=== PATIENT | female | born 1955 | race African-American/Black ===

== ENCOUNTER 2016-06-06 22:23 | Emergency (ER) | payer BC, OTHER ==
[2016-06-06] MEDS ORDERED: NORMAL SALINE 1000 ML 1,000 ML IV ONE (22:35)
[2016-06-06] MEDS ORDERED: OXYCODONE-ACETAMINOPHEN 5-325 MG TABLET PO ONE (22:36)
--- NOTE | 2016-06-06 22:41 | ER Document Report ---
ED Medical Screen (RME) - General Stated Complaint: CRAMPING Notes: Patient is a 60 year old female that comes to the ED for chief complaint of cramping pain in her hands and legs, she states symptoms have been present intermittently for years, states for the past 7 days they have been much worse, states today it became unbearable. Cramping worst in the left hand. No fevers. She states she has been eating/drinking today. TRAVEL OUTSIDE OF THE [place] IN LAST 30 DAYS: No - Related Data Allergies/Adverse Reactions: No Known Allergies Allergy (Verified 06/06/16 22:35) Past Medical History - Past Medical History Cardiac Medical History: Reports: Hx Hypertension Endocrine Medical History: Reports: Hx Diabetes Mellitus Type 2 Past Surgical History: Reports: Hx Hysterectomy, Hx Orthopedic Surgery - shoulders Physical Exam - General General appearance: Alert, Anxious In distress: Mild - patient with obvious cramps in her hands, worse on the left , appears to be in pain Course - Re-evaluation Re-evalutation: Patient reports she has been evaluated and treated by Neurology for this, states she has also been treated acutely for this with fluids. She states neurology told her it was related to her spine. She denies any numbness or weakness. Patient appears to be in pain, is requesting pain medication.
[2016-06-06 23:04] LABS: ABSOLUTE BASOPHILS # (AUTO) 0.1 10^3/uL (0.0-0.2); ABSOLUTE EOSINOPHILS # (AUTO) 0.1 10^3/uL (0.0-0.6); ABSOLUTE LYMPHOCYTES (AUTO) 2.4 10^3/uL (0.5-4.7); ABSOLUTE MONOCYTES (AUTO) 0.7 10^3/uL (0.1-1.4); BASOPHILS % (AUTO) 0.9 % (0-2); EOSINOPHILS % (AUTO) 0.7 % (0-6); HEMATOCRIT 41.3 % (36.0-47.0); HEMOGLOBIN 13.9 g/dL (12.0-15.5); HGB HCT DIFFERENCE 0.4; LYMPHOCYTES % (AUTO) 29.4 % (13-45); MEAN CORPUSCULAR HEMOGLOBIN 29.5 pg (27.0-33.4); MEAN CORPUSCULAR HGB CONC 33.7 g/dL (32.0-36.0); MEAN CORPUSCULAR VOLUME 87 fl (80-97); MONOCYTES % (AUTO) 8.2 % (3-13); RED BLOOD COUNT 4.73 10^6/uL (3.72-5.28); RED CELL DISTRIBUTION WIDTH 14.1 % (11.5-14.0); SEGMENTED NEUTROPHILS % (AUTO) 60.8 % (42-78); WHITE BLOOD COUNT 8.2 10^3/uL (4.0-10.5)
[2016-06-06 23:12] LABS: APPEARANCE,URINE CLEAR; BILIRUBIN,URINE NEGATIVE (NEGATIVE); GLUCOSE, URINE 150 mg/dL (NEGATIVE); KETONES,URINE NEGATIVE (NEGATIVE); LEUKOCYTE ESTERASE,URINE NEGATIVE (NEGATIVE); NITRITE,URINE NEGATIVE (NEGATIVE); PROTEIN,URINE NEGATIVE (NEGATIVE); URINE SPECIFIC GRAVITY 1.017; UROBILINOGEN,URINE NEGATIVE mg/dL (<2.0)
[2016-06-06 23:28] LABS: ALANINE AMINOTRANSFERASE 22 U/L (9-52); ALKALINE PHOSPHATASE 67 U/L (38-126); ANION GAP 13 (5-19); ASPARTATE AMINO TRANSFERASE 22 U/L (14-36); BILIRUBIN,TOTAL 0.3 mg/dL (0.2-1.3); BLOOD UREA NITROGEN 20 mg/dL (7-20); CALCIUM 10.1 mg/dL (8.4-10.2); CARBON DIOXIDE 29 mmol/L (22-30); CHLORIDE 95 mmol/L (98-107); CREATININE RESULT 1.42 mg/dL (0.52-1.25); GLUCOSE 176 mg/dL (75-110); POTASSIUM 4.5 mmol/L (3.6-5.0); SODIUM 137.3 mmol/L (137-145)
--- NOTE | 2016-06-07 04:04 | ER Document Report ---
ED General - General Chief Complaint: Other Stated Complaint: CRAMPING Time seen by provider: 04:00 Notes: Patient is a 60 year old female that comes to the ED for chief complaint of cramping pain in her hands and legs, she states symptoms have been present intermittently for years, states for the past 7 days they have been much worse, states today it became unbearable. Cramping worst in the left hand. No fevers. She states she has been eating/drinking today. She denies any numbness or weakness. TRAVEL OUTSIDE OF THE [place] IN LAST 30 DAYS: No - Related Data Allergies/Adverse Reactions: No Known Allergies Allergy (Verified 06/06/16 22:35) Past Medical History - General Information source: Patient - Social History Smoking Status: Current Every Day Smoker Chew tobacco use (# tins/day): No Frequency of alcohol use: Occasional Drug Abuse: None Lives with: Family Family History: Reviewed & Not Pertinent Patient has suicidal ideation: No Patient has homicidal ideation: No - Past Medical History Cardiac Medical History: Reports: Hx Hypertension Endocrine Medical History: Reports: Hx Diabetes Mellitus Type 2 Renal/ Medical History: Denies: Hx Peritoneal Dialysis Past Surgical History: Reports: Hx Hysterectomy, Hx Orthopedic Surgery - shoulders - Immunizations Hx Diphtheria, Pertussis, Tetanus Vaccination: Yes Review of Systems - Review of Systems Constitutional: No symptoms reported EENT: No symptoms reported Cardiovascular: No symptoms reported Respiratory: No symptoms reported Gastrointestinal: No symptoms reported Genitourinary: No symptoms reported Female Genitourinary: No symptoms reported Musculoskeletal: See HPI Skin: No symptoms reported Hematologic/Lymphatic: No symptoms reported Neurological/Psychological: No symptoms reported Physical Exam - Vital signs Vitals: Temp Pulse Resp BP Pulse Ox 98.3 F 98 20 143/81 H 98 06/06/16 22:35 06/06/16 22:35 06/06/16 22:35 06/06/16 22:35 06/06/16 22:35 Interpretation: Normal - General General appearance: Alert, Anxious In distress: Mild - patient appears to be in some discomfort - HEENT Head: Normocephalic, Atraumatic Eyes: Normal Conjunctiva: Normal Extraocular movements intact: Yes Eyelashes: Normal Pupils: PERRL Mouth/Lips: Normal Mucous membranes: Normal Pharynx: Normal Neck: Normal - Respiratory Respiratory status: No respiratory distress Chest status: Nontender Breath sounds: Normal. No: Decreased air movement, Wheezing Chest palpation: Normal - Cardiovascular Rhythm: Regular. No: Tachycardia Heart sounds: Normal auscultation, S1 appreciated, S2 appreciated Murmur: No - Abdominal Inspection: Normal Distension: No distension Bowel sounds: Normal Tenderness: Nontender Organomegaly: No organomegaly - Back Back: Normal, Nontender. No: Tender - Extremities General upper extremity: Other - Patient with intermittent spasm on the left and right hands, slightly worse on the left; strength is still present, normal capillary refill and sensation, General lower extremity: Normal inspection, Nontender, Normal color, Normal ROM , Normal temperature, Normal weight bearing. No: Germán's sign - Neurological Neuro grossly intact: Yes Cognition: Normal Orientation: AAOx4 Mary Coma Scale Eye Opening: Spontaneous Mary Coma Scale Verbal: Oriented Mary Coma Scale Motor: Obeys Commands [place] Coma Scale Total: 15 Speech: Normal Motor strength normal: LUE, RUE, LLE, RLE Sensory: Normal - Psychological Associated symptoms: Normal affect, Normal mood - Skin Skin Temperature: Warm Skin Moisture: Dry Skin Color: Normal Course - Re-evaluation Re-evalutation: Patient reports she has been evaluated and treated by Neurology for this, states she has also been treated acutely for this with fluids. She states neurology told her it was related to her spine. CBC unremarkable, chemistry shows deep decline in kidney function compared to prior, urinalysis unremarkable. Patient given IV fluids, patient was given pain medication, on reevaluation patient's spasms have stopped. Patient smiling , states she feels much better. Unsure the exact etiology, no current neurological deficits, patient symptoms were only muscular and did appear to be spasms and these were reported to be chronic and intermittent. Patient has primary care, she states that she'll follow up with him closely to obtain renal function test monitoring and also states that she plans to get a referral for an MRI of her back. Discussed return precautions for patient including focal numbness or weakness, fever, or any other concerning symptoms. Patient states understanding and agreement. - Vital Signs Vital signs: Temp Pulse Resp BP Pulse Ox 98.2 F 98 18 150/65 H 97 06/07/16 04:23 06/07/16 04:23 06/07/16 04:23 06/07/16 04:23 06/07/16 04:23 - Laboratory Result Diagrams: 06/06/16 22:40 06/06/16 22:40 Laboratory results interpreted by me: 06/06/16 06/06/16 06/06/16 22:40 22:40 22:45 RDW 14.1 H Chloride 95 L Creatinine 1.42 H Est GFR ( Amer) 46 L Est GFR (Non-Af Amer) 38 L Glucose 176 H Urine Glucose (UA) 150 H Discharge - Discharge Clinical Impression: Cramping of hands, Renal insufficiency Condition: Stable Disposition: HOME, SELF-CARE Additional Instructions: Continue to rehydrate. Avoid anti-inflammatory medications for now (until kidney functioning is normal) . Follow-up with your primary care provider within a week for recheck of kidney functioning and additional evaluation. Return to emergency department for any concerning or worsening symptoms. Prescriptions: Oxycodone HCl/Acetaminophen [Percocet 5-325 mg Tablet] 1 - 2 tab PO Q4H PRN #12 tablet PRN Reason: Forms: Return to Work Referrals: ZAHRA HAGAN MD [Primary Care Provider] - Follow up as needed
[2016-06-07 04:23] VITALS: BP 150/65
== END 2016-06-07 04:23 | disposition home or self-care (01) ==
LOC: ER 22:23
DX: N28.9 Disorder of kidney and ureter, unspecified (principal); R25.2 Cramp and spasm; F17.210 Nicotine dependence, cigarettes, uncomplicated
CPT/HCPCS: 99283; 96360; 36415; 85025; 80053; 81001; J7030

== ENCOUNTER 2016-10-18 15:52 | Emergency (ER) | payer BC, OTHER ==
--- NOTE | 2016-10-18 16:32 | ER Document Report ---
HPI - HPI Patient complains to provider of: Right sided neck swelling Onset: Yesterday Onset/Duration: Sudden Quality of pain: Achy Severity: Moderate Pain Level: 4 Context: Patient states she had similar episode several months ago. Put on antibiotics at that time. Patient states she was also recently treated for congestion, possible sinus infection. Still has some ear pain, right more than left. Associated Symptoms: Earache Exacerbated by: Other - Swallowing Relieved by: Denies Similar symptoms previously: Yes Recently seen / treated by doctor: Yes - ROS ROS below otherwise negative: Yes Systems Reviewed and Negative: Yes All other systems reviewed and negative - CONSTITUTIONAL Constitutional: DENIES: Fever - EENT EENT: REPORTS: Sore Throat, Ear Pain - NEURO Neurology: DENIES: Headache - CARDIOVASCULAR Cardiovascular: DENIES: Chest pain - RESPIRATORY Respiratory: DENIES: Trouble Breathing - GASTROINTESTINAL Gastrointestinal: DENIES: Abdominal Pain - URINARY Urinary: DENIES: Dysuria - REPRODUCTIVE Reproductive: DENIES: : - MUSCULOSKELETAL Musculoskeletal: DENIES: Extremity pain - DERM Skin Color: Normal Skin Problems: None Past Medical History - General Information source: Patient - Social History Smoking Status: Current Every Day Smoker Cigarette use (# per day): Yes Frequency of alcohol use: Occasional Drug Abuse: None Lives with: Family Family History: Reviewed & Not Pertinent Patient has suicidal ideation: No Patient has homicidal ideation: No - Past Medical History Cardiac Medical History: Reports: Hx Hypertension Endocrine Medical History: Reports: Hx Diabetes Mellitus Type 2 Past Surgical History: Reports: Hx Hysterectomy, Hx Orthopedic Surgery - shoulders - Immunizations Hx Diphtheria, Pertussis, Tetanus Vaccination: Yes Vertical Provider Document - CONSTITUTIONAL Agree With Documented VS: Yes Exam Limitations: No Limitations General Appearance: WD/WN, No Apparent Distress - INFECTION CONTROL TRAVEL OUTSIDE OF THE [place] IN LAST 30 DAYS: No - HEENT HEENT: Atraumatic, Normal ENT Exam, Normocephalic Notes: No swelling to the oropharynx noted. - NECK Neck: Lymphadenopathy-Right - RESPIRATORY Respiratory: Breath Sounds Normal, No Respiratory Distress O2 Sat by Pulse Oximetry: 98 - CARDIOVASCULAR Cardiovascular: Regular Rate, Regular Rhythm - GI/ABDOMEN Gastrointestinal: Abdomen Soft - MUSCULOSKELETAL/EXTREMETIES Musculoskeletal/Extremeties: MAEW - NEURO Level of Consciousness: Awake, Alert, Appropriate - DERM Integumentary: Warm, Dry Course - Re-evaluation Re-evalutation: 10/18/16 18:11 CT of neck showed right submandibular gland inflammation, no stone, no airway compromise, no abscess noted. Findings discussed with patient and she is encouraged to follow-up with her primary care physician Friday for recheck. Possible further evaluation since this is the second time she has had this in the last 5 months. - Vital Signs Vital signs: Temp Pulse Resp BP Pulse Ox 98.1 F 72 16 128/70 H 98 10/18/16 15:59 10/18/16 15:59 10/18/16 15:59 10/18/16 15:59 10/18/16 15:59 - Laboratory Result Diagrams: 10/18/16 16:38 10/18/16 16:38 Discharge - Discharge Clinical Impression: Submandibular gland inflammation, Hypokalemia Condition: Good Disposition: HOME, SELF-CARE Additional Instructions: Take all antibiotics as prescribed Medicines as needed push fluids your potassium low, drink OJ, eat bananas or other to raise potassium follow up with your doctor Friday for recheck Recommend ENT follow up for further evaluation since this is 2nd occurrence since Apr, 2016. return as needed Prescriptions: Clindamycin HCl 300 mg PO QID #40 capsule Oxycodone HCl/Acetaminophen [Percocet 5-325 mg Tablet] 1 - 2 tab PO ASDIR PRN # 15 tablet PRN Reason:
[2016-10-18 16:48] LABS: ABSOLUTE BASOPHILS # (AUTO) 0.1 10^3/uL (0.0-0.2); ABSOLUTE EOSINOPHILS # (AUTO) 0.1 10^3/uL (0.0-0.6); ABSOLUTE LYMPHOCYTES (AUTO) 2.6 10^3/uL (0.5-4.7); ABSOLUTE MONOCYTES (AUTO) 0.5 10^3/uL (0.1-1.4); ABSOLUTE NEUT (AUTO) 3.7 10^3/uL (1.7-8.2); BASOPHILS % (AUTO) 0.9 % (0-2); EOSINOPHILS % (AUTO) 0.7 % (0-6); HEMATOCRIT 39.5 % (36.0-47.0); HEMOGLOBIN 13.1 g/dL (12.0-15.5); HGB HCT DIFFERENCE -0.2; LYMPHOCYTES % (AUTO) 37.5 % (13-45); MEAN CORPUSCULAR HEMOGLOBIN 28.7 pg (27.0-33.4); MEAN CORPUSCULAR HGB CONC 33.2 g/dL (32.0-36.0); MEAN CORPUSCULAR VOLUME 87 fl (80-97); RED BLOOD COUNT 4.56 10^6/uL (3.72-5.28); RED CELL DISTRIBUTION WIDTH 13.8 % (11.5-14.0); SEGMENTED NEUTROPHILS % (AUTO) 53.9 % (42-78); WHITE BLOOD COUNT 6.9 10^3/uL (4.0-10.5)
[2016-10-18] MEDS ORDERED: KETOROLAC TROMETHAMINE INJ/PF 30 MG/1 ML SDV IV ONE (17:05)
[2016-10-18 17:06] LABS: ALANINE AMINOTRANSFERASE 41 U/L (9-52); ALBUMIN 3.8 g/dL (3.5-5.0); ALKALINE PHOSPHATASE 59 U/L (38-126); ANION GAP 9 (5-19); ASPARTATE AMINO TRANSFERASE 21 U/L (14-36); BILIRUBIN,DIRECT 0.2 mg/dL (0.0-0.4); BILIRUBIN,TOTAL 0.4 mg/dL (0.2-1.3); BLOOD UREA NITROGEN 19 mg/dL (7-20); CALCIUM 10.1 mg/dL (8.4-10.2); CARBON DIOXIDE 30 mmol/L (22-30); CHLORIDE 101 mmol/L (98-107); CREATININE RESULT 0.94 mg/dL (0.52-1.25); GLUCOSE 82 mg/dL (75-110); POTASSIUM 3.3 mmol/L (3.6-5.0); SODIUM 140.2 mmol/L (137-145); TOTAL PROTEIN 6.5 g/dL (6.3-8.2)
[2016-10-18] MEDS ORDERED: MORPHINE SULFATE 10 MG/ML INJ IV ONE (17:28)
--- NOTE | 2016-10-18 17:57 | RADIOLOGY REPORT (SQ) ---
EXAM DESCRIPTION: CT SOFT TISSUE NECK WITH COMPLETED DATE/TIME: 10/18/2016 5:40 pm REASON FOR STUDY: right sided neck swelling COMPARISON: 05/20/2016 TECHNIQUE: Post IV contrasted scanning from skull base through lung apices with review of bone, soft tissue and lung windows. Reconstructed coronal and sagittal MPR images reviewed. All images stored on PACS. All CT scanners at this facility use dose modulation, iterative reconstruction, and/or weight based d osing when appropriate to reduce radiation dose to as low as reasonably achievable (ALARA). [facility]: Dose Right [facility]: CareDose [facility]: Dose Right [facility]: Teradose 4D [facility]: [employer] CONTRAST TYPE AND DOSE: 75mL Isovue 370- low osmolar. RENAL FUNCTION: GFR > 60. RADIATION DOSE: 15.83 mGy. LIMITATIONS: None. FINDINGS: SKULL BASE: Intact. MAJOR SALIVARY GLANDS: There is asymmetric enlargement of the right submandibular gland with internal and surrounding edema compatible with inflammation. The right submandibular duct is slightly more p rominent than the left however no obstructing lesion or stone is visualized. Major salivary glands a re otherwise normal. No mass identified. LYMPHADENOPATHY: No adenopathy. MUCOSAL MASSES OR ASYMMETRY: No mucosal masses or asymmetry. LARYNX/CORDS: No abnormal findings. VASCULAR STRUCTURES: The major vessels are patent. LUNG APICES: Centrilobular and paraseptal emphysema. No acute findings. BONES: Degenerative change without fracture or suspicious osseous lesion. THYROID: Normal size. No masses. PARANASAL SINUSES: Clear. OTHER: No other significant finding. IMPRESSION: INFLAMMATORY CHANGE OF THE RIGHT SUBMANDIBULAR GLAND WITH SLIGHT PROMINENCE OF THE DUCT. NO OBSTRUCTING MASS OR STONE IDENTIFIED. NO DRAINABLE FLUID COLLECTION/ABSCESS IDENTIFIED. FINDIN GS COULD BE SECONDARY TO AN INFECTIOUS OR INFLAMMATORY PROCESS OR PASSAGE OF A STONE. CONSIDER [facility] ENT CONSULTATION. TECHNICAL DOCUMENTATION: JOB ID: [id number] [facility] [id number]: Final reports with documentation of one or more dose reduction techniques (e.g., Automate d exposure control, adjustment of the mA and/or kV according to patient size, use of iterative recons truction technique) 2010 [employer]- All Rights Reserved
[2016-10-18] MEDS ORDERED: DEXAMETHASONE SOD PHOS INJ 10 MG/1 ML VIAL IV ONE (18:04)
[2016-10-18 18:17] VITALS: BP 152/83
== END 2016-10-18 18:23 | disposition home or self-care (01) ==
LOC: ER 15:52
DX: R22.1 Localized swelling, mass and lump, neck (principal); E87.6 Hypokalemia; H92.03 Otalgia, bilateral; F17.210 Nicotine dependence, cigarettes, uncomplicated
CPT/HCPCS: 99283; 96374; 96375; 36415; 85025; 80053; 70491; J1885; J2270; J1100

== ENCOUNTER 2018-01-26 08:14 | Emergency (ER) | payer BC, OTHER ==
[2018-01-26] MEDS ORDERED: DIAZEPAM 5 MG TABLET PO ONE (08:48)
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
[2018-01-26 09:19] LABS: ABSOLUTE MONOCYTES (AUTO) 0.8 10^3/uL (0.1-1.4); ABSOLUTE NEUT (AUTO) 6.8 10^3/uL (1.7-8.2); BASOPHILS % (AUTO) 0.4 % (0-2); EOSINOPHILS % (AUTO) 0.1 % (0-6); HEMATOCRIT 39.4 % (36.0-47.0); HEMOGLOBIN 13.7 g/dL (12.0-15.5); LYMPHOCYTES % (AUTO) 11.7 % (13-45); MEAN CORPUSCULAR HEMOGLOBIN 30.4 pg (27.0-33.4); MEAN CORPUSCULAR HGB CONC 34.8 g/dL (32.0-36.0); MEAN CORPUSCULAR VOLUME 87 fl (80-97); PLATELET COUNT 297 10^3/uL (150-450); RED BLOOD COUNT 4.51 10^6/uL (3.72-5.28); RED CELL DISTRIBUTION WIDTH 13.8 % (11.5-14.0); SEGMENTED NEUTROPHILS % (AUTO) 78.8 % (42-78); TOTAL CELLS COUNTED % (AUTO) 100 %; WHITE BLOOD COUNT 8.6 10^3/uL (4.0-10.5)
[2018-01-26 09:33] LABS: ALANINE AMINOTRANSFERASE 32 U/L (9-52); ALBUMIN 3.8 g/dL (3.5-5.0); ALKALINE PHOSPHATASE 78 U/L (38-126); ANION GAP 14 (5-19); ASPARTATE AMINO TRANSFERASE 26 U/L (14-36); BILIRUBIN,DIRECT 0.3 mg/dL (0.0-0.4); BILIRUBIN,TOTAL 0.6 mg/dL (0.2-1.3); BLOOD UREA NITROGEN 21 mg/dL (7-20); CALCIUM 9.6 mg/dL (8.4-10.2); CARBON DIOXIDE 25 mmol/L (22-30); CHLORIDE 95 mmol/L (98-107); CREATINE KINASE 123 U/L (30-135); GLUCOSE 242 mg/dL (75-110); POTASSIUM 3.9 mmol/L (3.6-5.0); SODIUM 133.9 mmol/L (137-145); TOTAL PROTEIN 7.2 g/dL (6.3-8.2)
[2018-01-26] MEDS: RINGERS SOLUTION,LACTATED 1,000 ML IV PRN ×2 (10:28→11:35)
[2018-01-26 10:36] LABS: APPEARANCE,URINE TURBID; BILIRUBIN,URINE NEGATIVE (NEGATIVE); GLUCOSE, URINE 50 mg/dL (NEGATIVE); KETONES,URINE NEGATIVE (NEGATIVE); LEUKOCYTE ESTERASE,URINE SMALL (NEGATIVE); NITRITE,URINE NEGATIVE (NEGATIVE); PROTEIN,URINE 100 mg/dL (NEGATIVE); URINE SPECIFIC GRAVITY 1.015
[2018-01-26 10:40] LABS: COLOR,URINE YELLOW
[2018-01-26] MEDS ORDERED: NORMAL SALINE 1000 ML 1,000 ML IV ONE (12:35)
[2018-01-26 14:03] VITALS: BP 126/63
== END 2018-01-26 14:04 | disposition home or self-care (01) ==
LOC: ER 08:14
DX: N17.9 Acute kidney failure, unspecified (principal); E86.0 Dehydration; R25.2 Cramp and spasm; E11.8 Type 2 diabetes mellitus with unspecified complications; Z79.4 Long term (current) use of insulin; I10 Essential (primary) hypertension; F17.210 Nicotine dependence, cigarettes, uncomplicated; F12.10 Cannabis abuse, uncomplicated; E78.00 Pure hypercholesterolemia, unspecified
CPT/HCPCS: 99284; 96360; 96361; 36415; 82550; 83735; 84443; 85025; 80053; 81001; 83036; J7030; J7120

== ENCOUNTER 2018-08-20 00:46 | Emergency (ER) | payer BC, OTHER ==
--- NOTE | 2018-08-20 01:59 | ER Document Report ---
ED ENT - General Chief Complaint: Sore Throat Stated Complaint: SORE THROAT Time Seen by Provider: 08/20/18 01:45 Notes: Patient is a 62-year-old female that comes emergency department for chief complaint of throat irritation and swelling to the right side of the face and neck. Symptoms started at about midnight but have worsened since that time. She denies difficulty swallowing or breathing, denies tongue or lip swelling. She is on lisinopril. She does not have a history of angioedema. She denies fever or chills. She denies any other complaints. Remaining medical history is hyperlipidemia and type 2 diabetes. at bedside. TRAVEL OUTSIDE OF THE [place] IN LAST 30 DAYS: No - Related Data Allergies/Adverse Reactions: No Known Allergies Allergy (Verified 01/26/18 08:42) Past Medical History - General Information source: Patient - Social History Smoking Status: Never Smoker Frequency of alcohol use: None Drug Abuse: None Lives with: Family Family History: Reviewed & Not Pertinent - Past Medical History Cardiac Medical History: Reports: Hx Hypercholesterolemia, Hx Hypertension Endocrine Medical History: Reports: Hx Diabetes Mellitus Type 2 Renal/ Medical History: Denies: Hx Peritoneal Dialysis Past Surgical History: Reports: Hx Hysterectomy, Hx Orthopedic Surgery - right shoulder, right wrist tendon release - Immunizations Hx Diphtheria, Pertussis, Tetanus Vaccination: Yes Review of Systems - Review of Systems Constitutional: No symptoms reported EENT: See HPI Cardiovascular: No symptoms reported Respiratory: No symptoms reported Gastrointestinal: No symptoms reported Genitourinary: No symptoms reported Female Genitourinary: No symptoms reported Musculoskeletal: No symptoms reported Skin: No symptoms reported Hematologic/Lymphatic: No symptoms reported Neurological/Psychological: No symptoms reported Physical Exam - Vital signs Vitals: Temp Pulse Resp BP Pulse Ox 98.5 F 77 14 129/71 H 95 08/20/18 01:13 08/20/18 01:13 08/20/18 01:13 08/20/18 01:13 08/20/18 01:13 - Notes Notes: GENERAL: Alert, interacts well. No acute distress. HEAD: Normocephalic, atraumatic. EYES: Pupils equal, round, and reactive to light. Extraocular movements intact. ENT: Oral mucosa moist, tongue midline. Oropharynx unremarkable. Airway patent. Nares patent, no nasal septal hematoma, TM's intact. NECK: There is swelling along the right submandibular area and slightly behind this with some swelling just inferior to the jaw. The area is not erythematous, not notably tender, not indurated or fluctuant. LUNGS: Clear to auscultation bilaterally, no wheezes, rales, or rhonchi. No respiratory distress. HEART: Regular rate and rhythm. No murmur ABDOMEN: Soft, non-tender. Non-distended. Bowel sounds present in all 4 quadrants. GENITOURINARY: Deferred EXTREMITIES: Moves all 4 extremities spontaneously. No edema, normal radial and dorsalis pedis pulses bilaterally. No cyanosis. BACK: no cervical, thoracic, lumbar midline tenderness. No saddle anesthesia, normal distal neurovascular exam. NEUROLOGICAL: Alert and oriented x3. Normal speech. [cranial nerves II through XII grossly intact]. PSYCH: Normal affect, normal mood. SKIN: Warm, dry, normal turgor. No rashes or lesions noted. Course - Re-evaluation Re-evalutation: There is no tongue swelling, lip swelling, airway compromise, or signs of angioedema. Appears to be probably submandibular/other salivary gland swelling although this is not definite. Because of the swelling, sudden onset, decision was made to perform imaging. Imaging does show swelling of the parotid and submandibular glands with no focal abscess or concerning findings otherwise. On reexamination patient now has a stone which can be visualized on the right side underneath the tongue in the salivary duct. This was pushed almost all the way out, I was able to easily grab the tip of this with tweezers and gently pull this out without any pain, bleeding, or other abnormality. Because of the specific stone with sudden onset swelling with patient not complaining of problems like this usually I have a lower suspicion of autoimmune disease as mentioned on the CAT scan report. I did show the salivary duct stone to the patient. She is very excited and pleased about this. I discussed recommendations, follow-up, and return precautions with patient. Patient states understanding and agreement with plan. - Vital Signs Vital signs: Temp Pulse Resp BP Pulse Ox 98.7 F 78 20 135/78 H 97 08/20/18 03:51 08/20/18 03:51 08/20/18 03:51 08/20/18 03:51 08/20/18 03:51 - Laboratory Result Diagrams: 08/20/18 01:49 08/20/18 01:49 Laboratory results interpreted by me: 08/20/18 01:49 Est GFR (Non-Af Amer) 59 L Calcium 10.5 H Discharge - Discharge Clinical Impression: Salivary gland swelling Condition: Stable Disposition: HOME, SELF-CARE Additional Instructions: A stone from the salivary duct was removed during your visit tonight. The parotid and submandibular salivary glands are swollen from this stone most likely, I recommend gentle massage, citrus suckers such as lemon drops, and [id number] anti-inflammatory such as ibuprofen. Symptoms should resolve with time. Follow-up with primary care. Return if you worsen including increased swelling, developing pain, redness, fever, or any other concerning symptoms. Forms: Treatment of Relative/Child
[2018-08-20 02:03] LABS: ABSOLUTE BASOPHILS # (AUTO) 0.1 10^3/uL (0.0-0.2); ABSOLUTE EOSINOPHILS # (AUTO) 0.1 10^3/uL (0.0-0.6); ABSOLUTE LYMPHOCYTES (AUTO) 3.2 10^3/uL (0.5-4.7); ABSOLUTE MONOCYTES (AUTO) 0.6 10^3/uL (0.1-1.4); ABSOLUTE NEUT (AUTO) 3.9 10^3/uL (1.7-8.2); BASOPHILS % (AUTO) 0.7 % (0-2); EOSINOPHILS % (AUTO) 0.7 % (0-6); HEMATOCRIT 40.9 % (36.0-47.0); LYMPHOCYTES % (AUTO) 41.3 % (13-45); MEAN CORPUSCULAR HEMOGLOBIN 29.8 pg (27.0-33.4); MEAN CORPUSCULAR HGB CONC 34.3 g/dL (32.0-36.0); MEAN CORPUSCULAR VOLUME 87 fl (80-97); MONOCYTES % (AUTO) 7.2 % (3-13); PLATELET COUNT 375 10^3/uL (150-450); RED BLOOD COUNT 4.69 10^6/uL (3.72-5.28); RED CELL DISTRIBUTION WIDTH 13.7 % (11.5-14.0); SEGMENTED NEUTROPHILS % (AUTO) 50.1 % (42-78); TOTAL CELLS COUNTED % (AUTO) 100 %; WHITE BLOOD COUNT 7.7 10^3/uL (4.0-10.5)
[2018-08-20 02:21] LABS: ANION GAP 11 (5-19); BLOOD UREA NITROGEN 16 mg/dL (7-20); CALCIUM 10.5 mg/dL (8.4-10.2); CARBON DIOXIDE 28 mmol/L (22-30); CHLORIDE 100 mmol/L (98-107); GLUCOSE 109 mg/dL (75-110); POTASSIUM 3.6 mmol/L (3.6-5.0); SODIUM 138.9 mmol/L (137-145)
--- NOTE | 2018-08-20 03:36 | RADIOLOGY REPORT (SQ) ---
EXAM DESCRIPTION: CT NECK CHEST WITH IV CONTRAST COMPLETED DATE/TME: 08/20/2018 01:54 CLINICAL HISTORY: 62 years Female, right sided facial/neck swelling Comparison: May 20, 2016. Technique: IV contrast. Coronal and sagittal reformat. This exam was performed according to our departmental dose-optimization program, which includes automated exposure control, adjustment of the mA and/or kV according to patient size and/or use of iterative reconstruction technique. [facility]: Dose Right [facility]: CareDose [facility]: Dose Right [facility]: Teradose 4D [facility]: Grovac LIMITATIONS: None Findings: Orbits, paranasal sinuses, and skull base: Normal. Nasopharynx: Normal. Suprahyoid neck: Small fluid and fat inflammation surrounds the inferior aspect of the right parotid gland and the lateral aspect of the right submandibular gland. Mild diffuse prominence of the parotid and submandibular glands without significant change compared with prior CT from May 20, 2016. Mild diffuse subcutaneous edema at the right cheek. Else, unremarkable oropharynx, oral cavity, parapharyngeal space, and retropharyngeal space. Infrahyoid neck: Normal larynx, hypopharynx, and supraglottis. Thyroid: Normal. Thoracic inlet: Normal lung apices and brachial plexus. Lymph nodes: Normal. No lymphadenopathy. Vascular structures: Atherosclerotic vascular disease. Other findings: Moderate disc desiccation of the mid and lower cervical spine. Impression: Mild right buccal inflammation associated with the right parotid and right submandibular glands. Similar pattern prior exam from May 20, 2016. No abscess and no drainable fluid collection. No obstructing stone and no significant ductal enlargement identified. Differential etiologies include infectious and autoimmune (Sjogren Syndrome).
[2018-08-20 03:51] VITALS: BP 135/78
== END 2018-08-20 04:03 | disposition home or self-care (01) ==
LOC: ER 00:46
DX: K11.8 Other diseases of salivary glands (principal); J02.9 Acute pharyngitis, unspecified; R22.0 Localized swelling, mass and lump, head; Z79.899 Other long term (current) drug therapy; E78.5 Hyperlipidemia, unspecified; E11.9 Type 2 diabetes mellitus without complications; I10 Essential (primary) hypertension
CPT/HCPCS: 36415; 70491; 80048; 85025; 87070; 87880; 99283